=== PATIENT | male | born 1980 | race Caucasian/White ===

== ENCOUNTER 2018-10-08 21:16 | Emergency (ER) | payer MEDICAID ==
--- NOTE | 2018-10-08 21:34 | Emergency Department Record ---
History of Present Illness - General Chief Complaint: Abdominal Pain Stated Complaint: ABD PAIN Time Seen by Provider: 10/08/18 21:27 Source: Patient Mode of Arrival: Ambulatory Limitations: No limitations - History of Present Illness Initial Comments: 38 yo male presents with RUQ. He reports he has been having pain in this area for about 6 months. About 5 months ago he had CT scan and US. No specific diagnosis was found at that time. The pain never fully leaves and is present at all times. It became worse the last 3 days. He has some decreased appetite. No fever. No rash in the RUQ. He has had some diarrhea the last few days as well. No blood in the diarrhea. In the last 6 months he has had upper endoscopy for the pain. He states "increase acid and inflammation" were noted. He has follow up again with his GI specialist this Wednesday. Dr Tom STRICKLAND Complaint: Abdominal pain -: Month(s) Location: RUQ Radiation: RUQ Migration to: RUQ Severity: Severe Quality: Aching, Sharp Consistency: Constant Improves With: Nothing Worsens With: Nothing Context: Other Associated Symptoms: Anorexia, Other - Related Data Home Medications Medication Instructions Recorded Confirmed Last Taken Aripiprazole [Abilify] 30 mg PO DAILY 10/08/18 10/08/18 10/08/18 Bupropion HCl [Bupropion Xl] 450 mg PO DAILY 10/08/18 10/08/18 10/08/18 Gabapentin [Neurontin] 800 mg PO TID 10/08/18 10/08/18 10/08/18 Pantoprazole Sodium [Protonix] 40 mg PO BID 10/08/18 10/08/18 10/08/18 Allergies Allergy/AdvReac Type Severity Reaction Status Date / Time Penicillins Allergy DIFFICULTY Verified 10/08/18 21:37 BREATHING Review of Systems Constitutional: Denies: Chills, Fever, Malaise, Night sweats, Weakness Eyes: Denies: Eye discharge, Eye pain, Vision change ENT: Denies: Congestion, Throat pain Respiratory: Denies: Cough, Dyspnea, Wheezes Cardiovascular: Denies: Chest pain, Palpitations, Syncope Endocrine: Denies: Fatigue, Polydipsia, Polyuria Gastrointestinal: Reports: Abdominal pain, Diarrhea, Nausea, Vomiting. Denies: Constipation, Hematemesis, Hematochezia, Melena Genitourinary: Denies: Dysuria, Frequency, Hematuria Musculoskeletal: Reports: Back pain (chronic). Denies: Arthralgia, Myalgia Skin: Denies: Bruising, Change in color, Rash Neurological: Denies: Headache Psychiatric: Denies: Anxiety Hematological/Lymphatic: Denies: Easy bleeding, Easy bruising Physical Exam - General General Appearance: Oriented x3, Cooperative Limitations: No limitations - Head Head exam: Atraumatic, Normal inspection - Eye Eye exam: Normal appearance, PERRL. negative: Conjunctival injection, Scleral icterus - ENT ENT exam: Normal exam, Mucous membranes moist Ear exam: Normal external inspection Nasal Exam: Normal inspection Mouth exam: Normal external inspection - Neck Neck exam: Normal inspection - Respiratory Respiratory exam: Normal lung sounds bilaterally. negative: Decreased breath sounds, Respiratory distress, Rhonchi, Stridor, Wheezes - Cardiovascular Cardiovascular Exam: Normal rhythm, Normal heart sounds, Tachycardia Peripheral Pulses: 2+: Radial (R), Radial (L) - GI/Abdominal GI/Abdominal exam: Soft, Normal bowel sounds, Tenderness (The patient has an obese soft abdomen. He is only tender in the right upper quadrant. No rash or mass. No palpable hernia. ). negative: Diminished bowel sounds, Distended, Guarding, Hernia, Rebound - Rectal Rectal exam: Deferred - exam: Deferred - Extremities Extremities exam: negative: Pedal edema, Tenderness - Back Back exam: Denies: CVA tenderness (R), CVA tenderness (L) - Neurological Neurological exam: Alert, Oriented X3 - Psychiatric Psychiatric exam: Normal affect, Normal mood. negative: Agitated, Anxious - Skin Skin exam: Dry, Intact, Normal color, Warm Course Vital Signs 10/08/18 21:22 Temperature 98.6 F Pulse Rate [ 117 H Left] Respiratory 20 Rate Blood Pressure 129/106 [Left] Pulse Ox 99 - Reevaluation(s) Reevaluation #1: 10/08/18 22:15 The CBC was reviewed No acute process. 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 The patient reports his pain is starting to relax. HR 102. No acute findings on the labs or CT The patient has been dealing with this ongoing pain for months. I do not find an acute cause or new finding tonight He has pain management at home and close follow up with his GI this week Since the pain is chronic I suggested he discuss with his doctor possible HIDA scan to rule out biliary dyskinesia and MRI to rule out thoracic nerve as a cause. 10/08/18 23:17 Medical Decision Making - Lab Data Result diagrams: 10/08/18 21:53 10/08/18 21:53 Disposition Disposition: Discharge Clinical Impression: Right upper quadrant pain Disposition: Home, Self-Care Condition: (1) Good Instructions: Chronic Abdominal Pain (ED) Additional Instructions: Call your doctors Wednesday to discuss this ER visit and the tests performed Discuss with your doctors a possible HIDA scan of your gall bladder Also discuss a possible MRI of the thoracic spine to rule out a bulging disc with nerve pain as the cause of your pain Be seen immediately if worse, vomiting, fever or new concerns. Forms: Patient Portal Access Time of Disposition: 23:22 Quality - Quality Measures Quality Measures: N/A - Blood Pressure Screening Does Patient Have Any of the Following: No Blood Pressure Classification: Pre-Hypertensive BP Reading Systolic Measurement: 148 Diastolic Measurement: 84 Screening for High Blood Pressure: < Pre-Hypertensive BP, F/U Documented > [G8950] Pre-Hypertensive Follow-up Interventions: Referral to alternative/primary care provider.
[2018-10-08] MEDS ORDERED: 0.9 % SODIUM CHLORIDE 1,000 ML BAG IV ONE (21:37)
[2018-10-08] MEDS ORDERED: ONDANSETRON HCL IV 4 MG/2 ML VIAL IVP ONE (21:37)
[2018-10-08] MEDS ORDERED: KETOROLAC 30 MG/ML VIAL IVP ONE ×2 (21:37→23:17)
[2018-10-08] MEDS ORDERED: HYDROMORPHONE HCL 2 MG/ML VIAL IVP ONE ×2 (21:37→22:39)
[2018-10-08 22:00] LABS: ABSOLUTE NEUTROPHIL COUNT 5.71; BASO % 0.2 % (0-6); EOS % 1.4 % (0-6); HEMOGLOBIN 14.8 gm/dl (14.0-18.0); LYMPH % 41.1 % (16-45); MEAN CORPUSCULAR HGB CONC 34.4 g/dl (32-36); MEAN PLATELET VOLUME 10.7 fl (7.4-10.4); MONO % 11.3 % (0-9); PLATELET COUNT 262 K/uL (130-400); RED BLOOD COUNT 4.94 M/uL (4.40-5.70); RED CELL DISTRIBUTION WIDTH 13.7 % (11.5-14.5); WHITE BLOOD COUNT W/O DIFF 12.4 K/uL (4.2-12.2)
[2018-10-08 22:13] LABS: BLOOD UREA NITROGEN 11 mg/dL (6-20); CREATININE 0.7 mg/dL (0.7-1.2); EST GLOMERULAR FILTRATION RATE > 60 mL/min
[2018-10-08 22:14] LABS: LIPASE 17 U/L (13-60); TOTAL PROTEIN 7.2 g/dL (6.6-8.7)
[2018-10-08 22:16] LABS: GLUCOSE,RANDOM 88 mg/dL (74-109)
[2018-10-08 22:19] LABS: ALB/GLOB RATIO 1.5 (1.1-1.8); ALBUMIN 4.3 g/dL (4.0-5.0); ALKALINE PHOSPHATASE 70 U/L (40-129); ALT/SGPT 35 U/L (<41); AST/SGOT 34 U/L (10.0-50.0)
--- NOTE | 2018-10-10 08:24 | CT SCAN REPORT ---
EXAM: CT OF THE ABDOMEN AND PELVIS WITH CONTRAST HISTORY: INTERMITTENT HYPERTENSION. SHARP ABDOMINAL PAIN. TECHNIQUE: Contrast enhanced helical CT examination of the abdomen and pelvis was performed including delayed images through the kidneys with 100 ml of Omnipaque 300 utilized. Oral contrast was not utilized limiting evaluation of bowel. Comparison: None. FINDINGS: There is minor dependent atelectasis within the lung bases. No pleural or pericardial effusion. The heart is not enlarged. The liver, spleen, pancreas, adrenal glands, and kidneys are normal in appearance. The gallbladder is unremarkable and no biliary ductal dilatation is seen. No intraabdominal nor retroperitoneal lymphadenopathy is identified. The vasculature is normal in appearance. No pelvic mass, lymphadenopathy or free pelvic fluid. No intrinsic urinary bladder abnormality. No gross bowel dilatation nor bowel wall thickening. The appendix is visualized and normal in appearance. A small fat filled umbilical hernia is present. The wall of the distal esophagus appears borderline prominence in thickness likely due to incomplete distention. No lytic or blastic bone lesion. Multilevel disk/end plate changes are noted within the mid to lower lumbar spine as well as the lower thoracic spine. At least mild central canal stenosis is suspected at the L3-L4 and L4-L5 levels due to disk bulging, end plate spurring, and prominent posterior epidural fat. IMPRESSION: 1. NO CT EVIDENCE OF AN ACUTE INTRAABDOMINAL NOR INTRAPELVIC PROCESS. 2. DEGENERATIVE CHANGES SCATTERED WITHIN THE SPINE. CENTRAL CANAL STENOSIS IS SUSPECTED AT THE L3-L4 AND L4-L5 LEVELS. JOB NUMBER: [id number] [facility]
== END 2018-10-08 23:40 | disposition home or self-care (01) ==
LOC: ER 21:16
DX: R10.11 Right upper quadrant pain (principal); R19.7 Diarrhea, unspecified; F17.210 Nicotine dependence, cigarettes, uncomplicated
CPT/HCPCS: 74177; 80053; 83690; 85025; 99284; 99285; J1885; J2405; J7030